=== PATIENT | male | born 1990 | race Caucasian/White ===

== ENCOUNTER 2021-03-08 10:17 | Day surgery (SDC) | payer MEDICAID, SELFPAY ==
[2021-03-08 10:55] VITALS: BP 91/49; PULSE 58; RESP 16; TEMP 36.1; O2SAT 97; BMI 24.0
--- NOTE | 2021-03-08 11:15 | PC.NURSE ---
Patient called form waiting room with half empty bottle of water when asked when he last had any of the water and stated maybe 15 minutes ago [which would be 10:30] Dr Ahmadi & Dr Mendoza made aware. Patient procedure delayed by [address] Gomes made aware.
--- NOTE | 2021-03-08 12:06 | HO.ANESPROP2 ---
[facility] Active Problems Active Problems: All Active Problems (Updated 12/06/20 @ 10:23 by Betsy Guerra MD) Nausea and vomiting (Acute) Gastroparesis (Acute) Past Medical History Medical History IDDM (insulin dependent diabetes mellitus) Marijuana use Tobacco abuse Ulcerative colitis Social History Social History Patient Tobacco Use Status: Current everyday Tobacco user Cigarettes Per Day: 7 Use of substances other than those prescribed or required for medical reasons: Yes Substance Use Frequency: Daily Are you DNR?: No Advance Directives: No Advance Directives Information Provided: Yes Meds Allergies Allergy/AdvReac Type Severity Reaction Status Date / Time No Known Allergies Allergy Unverified 05/06/20 19:36 Exam Exam Date and Time: March 08, 2021 1206 Height,Weight and Vital Signs: Height 5 ft 4 in Weight 63.503 kg Last Vital Signs Temp 97.0 F 03/08/21 10:55 Pulse 58 03/08/21 10:55 Resp 16 03/08/21 10:55 BP 91/49 L 03/08/21 10:55 Pulse Ox 97 03/08/21 10:55 Airway Mallampati Class: I TM Dist: >3cm Neck ROM: Full Loose/Missing/Broken Teeth: No Heart: RRR Lungs: CTA Assessment and Plan Assessment Anesthesia Assessment: Anesthesia Plan Discussed and Chart Reviewed Final Anesthetic Review NPO: Yes ASA Class: II Final Preanesthetic Review: Meds/Allgs Chart Reviewed, Consent Obtained/Reviewed and Anes Risks/Benef Reviewed Patient Risk: Intermediate Procedure Risk: Low Anesthetic Plan Anesthetic Plan: MAC: Disposition: Standard PACU
--- NOTE | 2021-03-08 12:21 | MHC.SHP ---
Pre-Procedural Eval Section A Date of Service: 03/08/21 Section B Chief Complaint: ulcerative colitis Details of Present Illness: Abnormal ct scan of colon Relevant Family History (Specify if Yes): No Relevant Social History: Tobacco Use Present Medications: see Short Stay Collaborative assessment Medical History: Significant History (Diabetes mellitus) History of Previous Operations: No relevant previous surgery Allergies: Allergies Allergy/AdvReac Type Severity Reaction Status Date / Time No Known Allergies Allergy Unverified 05/06/20 19:36 Review of Systems Sugical H&P ROS: Negative: Constitution, Cardiovascular, Respiratory, Neurological, Psychiatric, Hem-Onc, Allergic/Immunologic, Gastrointestinal, Genitourinary, Musculoskeletal, Integumentary, Endocrine and Eyes/Ears/Nose/Throat Exam Surgical H&P Exam: Normal: HEENT, Normal: Heart, Normal: Lungs, Normal: Extremities, Normal: Abdomen, Normal: Skin and Normal: Neurological Plan Diagnosis/Plan: Unchanged I have reviewed the history and physical and performed a pertinent physical examination on my patient. No changes have occurred unless specified.
[2021-03-08 13:02] VITALS: BP 89/47; PULSE 59; RESP 18; TEMP 36.2; O2SAT 99
[2021-03-08 13:17] VITALS: BP 97/52; PULSE 72; RESP 16; O2SAT 97
--- NOTE | 2021-03-08 13:29 | PM.OP ---
Brief Operative Note Date of Service: 03/08/21 Pre-op diagnosis: abnormal ct scan of colon Post-op diagnosis: same (normal) Procedure: colonoscopy Surgeon: Camacho Gomes Anesthesia: MAC Was an Junior Engineer used for this Procedure?: No Estimated blood loss (mL): 5 Pathology: other (bx's ti and sigmoid) Condition: stable Disposition: PACU
[2021-03-08 13:30] VITALS: BP 102/67
--- NOTE | 2021-03-08 14:22 | OP_ITS ---
SURGEON: Camacho Gomes MD INDICATIONS: Abnormal CT scan of the colon. PREOPERATIVE DIAGNOSIS: POSTOPERATIVE DIAGNOSIS: PROCEDURE PERFORMED: Colonoscopy to the terminal ileum with biopsy. ESTIMATED BLOOD LOSS: COMPLICATIONS: ANESTHESIA: ASSISTANTS: SPECIMENS: MEDICATIONS: Monitored anesthesia care. DESCRIPTION OF PROCEDURE: History and physical performed. The risks and benefits of the procedure were explained to the patient. Informed consent was obtained. The patient was placed in left lateral decubitus position. A digital rectal exam was performed and was found to be normal. The Olympus pediatric video colonoscope was introduced into the rectum and advanced to the cecum without difficulty. The cecum was identified by transillumination, palpation, and identification of ileocecal valve. Examination was performed and the scope was removed. He tolerated the procedure well and was taken to recovery area in stable condition. FINDINGS: The terminal ileum was normal. This was biopsied. The visualized colonic mucosa was normal. There was a large amount of liquid stool present in the colon, which was washed and suctioned. This did limit the examination for detection of small lesions, but overall, the exam was considered adequate to rule out ulcerative colitis. He had no evidence of ulcerative colitis. The mucosa appeared normal. Biopsies were obtained from the sigmoid. Retroflexed examination showed small internal hemorrhoids. IMPRESSION: Normal colonoscopy. RECOMMENDATION: Follow up the biopsy results. MD HYUN Paige/RAMIRO / [id number]
== END 2021-03-08 14:35 | disposition home or self-care (01) ==
PROVIDERS: PCP Physician Assistant Medical; Visit Provider Internal Medicine Gastroenterology
PROC: 0DJD8ZZ Inspection of Lower Intestinal Tract, Via Natural or Artificial Opening Endoscopic (ICD-10-PCS; CPT 45378; principal; 2021-03-08 11:50)
DX: R93.3 Abnormal findings on diagnostic imaging of other parts of digestive tract (principal); K64.8 Other hemorrhoids; E10.9 Type 1 diabetes mellitus without complications; Z79.4 Long term (current) use of insulin; F17.210 Nicotine dependence, cigarettes, uncomplicated; F12.90 Cannabis use, unspecified, uncomplicated
CPT/HCPCS: 45380; 88305